=== PATIENT | female | born 1930 | race Caucasian/White ===

== ENCOUNTER 2016-06-25 08:17 | Inpatient (IN) | payer MEDICARE, OTHER ==
[~2016-06-25] VITALS: Ht 154.9 cm; Wt 55.3 kg
[2016-06-25] MEDS ORDERED: CEFAZOLIN 1 GM IVPB PREMIX 50 ML IV ONE (09:00)
[2016-06-25] MEDS ORDERED: LR 1,000 ML IV SCH (12:28)
[2016-06-25] MEDS ORDERED: MORPHINE 2 MG/ML INJ. SYRINGE IVP PRN ×3 (12:30)
[2016-06-25] MEDS: D5/0.45 NS 1,000 ML IV SCH ×2 (12:52→22:18)
[2016-06-25] MEDS ORDERED: ACETAMINOPHEN 325 MG TABLET PO PRN (13:00)
[2016-06-25] MEDS ORDERED: HYDROcodone/ACETAMIN 5-325 MG TAB (NORCO/ VICODIN) PO PRN (13:00)
[2016-06-25] MEDS ORDERED: HYDROmorphone 1 MG INJ. 1 MG/ML AMPUL IVP PRN (13:00)
--- NOTE | 2016-06-25 13:50 | NUR ---
ADMIT NOTE RECEIVED PATIENT FROM PACU, PT STABLE, AWAKE ALERT AND ORIENTED, VSS, NO S/S OF DISTRESS OR COMPLAINT OF PAIN AT THIS TIME, DRESSING NOTED TO RIGHT LEG, CDI, ELEVATED ON PILLOW, SCD TO LEFT FOOT INTACT, IV TO LFA 20 GG INTACT AD INFUSING LR AT ORDERED RATE, NO S/S OF INFILTRATION NOTED. PT ORIENTED TO ROOM AND USE OF CALL LIGHT , SAFETY MEASURES IN PLACE, DAUGHTERS AT BEDSIDE, WILL CONTINUE TO MONITOR
[2016-06-25 14:17] VITALS: BP 157/75; PULSE 72; RESP 16; TEMP 96.1; O2SAT 96
[2016-06-25] MEDS ORDERED: HYDR25TA4 PO (14:49)
[2016-06-25] MEDS ORDERED: APIX2.5T PO (14:49)
[2016-06-25] MEDS ORDERED: DILT240C2 PO (14:49)
[2016-06-25] MEDS ORDERED: IPRA0.2S6 INH (14:49)
[2016-06-25] MEDS ORDERED: ALBU8.5H8 INH (14:49)
--- NOTE | 2016-06-25 15:10 | NUR ---
DR GRIFFIN OFFICE WAS CALLED SPOKE WITH JAS Addendum: 06/25/16 at 1755 by Miryam Ty RN MD RODRIGUEZ MADE AWARE THAT PT IS UNDER HIS CARE DURING OBSERVATION.
--- NOTE | 2016-06-25 15:50 | NUR ---
PT ASSISTED TO BEDPAN Addendum: 06/25/16 at 1754 by Miryam Ty RN VOIDED OUT 850ML, CLEAR YELLOW URINE, PT CLEANSED AND REPOSITIONED WITH PILLOW SUPPORT TO RIGHT LOWER EXTREMITY. PT DENIES PAIN AT THIS TIME, NO S/S OF DISTRESS, VSS, DAUGHTERS AT BEDSIDE, CALL LIGHT WITHIN REACH, WILL CONTINUE TO MONITOR.
[2016-06-25 16:00] VITALS: BP 140/77; PULSE 65; RESP 17; TEMP 97.2; O2SAT 98
[2016-06-25] MEDS: CEFAZOLIN 1 GM IVPB PREMIX 50 ML IV SCH ×2 (16:23→22:17)
[2016-06-25] MEDS: HYDROcodone/ACETAMIN 5-325 MG TAB (NORCO/ VICODIN) PO PRN ×2 (16:23→20:26)
[2016-06-25 17:19] VITALS: BP 157/75; PULSE 72; RESP 16; TEMP 96.1; O2SAT 96
--- NOTE | 2016-06-25 17:55 | NUR ---
PT EDUCATED REGARDING USE OF INCENTIVE SPIROMETER TO EXERCISE LUNGS AND AVOID POSTOPERATIVE ISSUES. PT VERBALIZED UNDERSTANDING, ABLE TO DEMONSTRATE USE OF INCENTIVE SPIROMETER, CAN GO UP TO 750, PT ENCOURAGED TO USE EVERY 20 MINUTES POST OP DAY, WILL CONTINUE TO MONITOR
--- NOTE | 2016-06-25 19:01 | NUR ---
CLOSING NOTE PT ASSISTED TO BEDSIDE COMMODE, NO S/S OF DISTRESS OR COMPLAINT OF PAIN, PT TOLERATED WELL, VSS, IV TO LFA PATENT AND INTACT, INFUSING ORDER FLUID AT PRESCRIBED RATE. DRESSING TO RIGHT LEG AND RIGHT THIGH CLEAN DRY AND INTACT, NO S/S OF ACTIVE BLEEDING. ALL NEEDS ATTENDED TO THROUGHOUT SHIFT, SAFETY MEASURES IN PLACE, CALL LIGHT WITHIN REACH, WILL ENDORSE CARE TO FOLLOWING SHIFT.
[2016-06-25 20:00] VITALS: BP 149/91; PULSE 64; RESP 18; TEMP 97.2; O2SAT 97
--- NOTE | 2016-06-25 20:00 | NUR ---
Initial Notes Received patient resting in bed, finishing dinner, family at bedside. Patient is awake, alert, oriented. Vital signs stable. Patient denies any acute distress or pain at this time. Breathing is even and unlabored on room air. IV site patent/clean/dry. Patient s/p skin graft right lower extremity, surgical dressing intact, small drainage noted. Educated patient on use of call light for assistance and fall precautions, patient verbalized understanding. Call light in hand, will continue to monitor.
[2016-06-25] MEDS: FAMOTIDINE PF 20 MG/2 ML VIAL IVP SCH (20:25)
--- NOTE | 2016-06-25 20:45 | NUR ---
MD Communication S/W Dr. Dimas, covering, requesting for orders for breathing treatment. Orders received.
[2016-06-25] MEDS: IPRATROPIUM/ALBUTEROL SULFATE 3 ML AMPUL.NEB INH PRN (21:14)
--- NOTE | 2016-06-25 22:00 | NUR ---
Rounds Patient resting in bed, awake. Denies any acute distress or pain at this time. Breathing is even and unlabored. IV site patent/clean/dry. Educated patient on use of incentive spirometer, patient able to return demonstration, 750ml. Needs address. Call light in hand, fall precautions in place. Will continue to monitor for changes and safety.
[2016-06-25 22:07] VITALS: BP 149/91
[2016-06-26] VITALS: BP 134/57; PULSE 61; RESP 16; TEMP 97.8; O2SAT 96
--- NOTE | 2016-06-26 | NUR ---
Rounds Patient resting in bed with eyes closed. No acute distress noted, breathing even and unlabored. IV site patent/clean/dry. Call light in hand, will continue to monitor.
[2016-06-26] MEDS: IPRATROPIUM/ALBUTEROL SULFATE 3 ML AMPUL.NEB INH PRN ×3 (01:30→20:30)
[2016-06-26] MEDS: HYDROcodone/ACETAMIN 5-325 MG TAB (NORCO/ VICODIN) PO PRN (01:35)
--- NOTE | 2016-06-26 02:12 | NUR ---
Rounds Patient awake in bed. Patient denies any acute distress. Medicated patient for pain per MD orders. Patient recently received breathing treatment. IV site patent/clean/dry. Surgical dressing intact. Assisted patient to bedside commode. Needs addressed. Call light in hand, will continue to monitor.
[2016-06-26 04:00] VITALS: BP 134/70; PULSE 60; RESP 22; TEMP 97; O2SAT 22
--- NOTE | 2016-06-26 04:00 | NUR ---
Rounds Patient resting in bed, awake. Patient denies any acute distress or pain at this time. Breathing is even and unlabored. IV site patent/clean/dry. Drainage noted on dressing, mostly serous, dressing note removed per MD order. Needs addressed. Call light in hand, fall precautions in place. Will continue to monitor.
[2016-06-26] MEDS: ONDANSETRON HCL 4 MG/2 ML VIAL IVP PRN ×2 (05:39→10:53)
--- NOTE | 2016-06-26 05:45 | NUR ---
N/V Patient reported feeling nauseous, vomited small amount of last night's dinner. Medicated patient per MD order. Will continue to monitor.
--- NOTE | 2016-06-26 06:31 | NUR ---
Closing Notes Patient resting in bed with eyes closed, easily aroused. Patient denies any acute distress or pain at this time. Breathing is even and unlabored. IV site patent/clean/dry, no S/S infection/infiltration noted. Dressing in place and intact, not removed per MD order. Patient noted nausea has subsided. Needs addressed throughout shift. Call light in hand, fall precautions in place. Will continue to monitor for changes and safety, and endorse all patient care/needs to oncoming nurse.
[2016-06-26 08:00] VITALS: BP 132/68; PULSE 60; RESP 16; TEMP 96.8; O2SAT 96
--- NOTE | 2016-06-26 08:00 | NUR ---
INITIAL NOTE PT RESTING, EASY TO AROUSE, ALERT AND ORIENTED X4, NO S/S OF DISTRESS OR COMPLAINT OF PAIN AT THIS TIME, VSS, IV FLUIDS INFUSING AT ORDERED RATE, NO S/S OF INFILTRATION NOTED, DRESSING TO RIGHT LEG CLEAN DRY AND INTACT, DRESSING TO RIGHT THIGH NOTED DRAINAGE, WILL MAKE MD AWARE, ORDERS ARE TO NOT REMOVE DRESSING, SCD TO LEFT LEG IN PLACE, PLAN OF CARE DISCUSSED WITH PT, PT VERBALIZED UNDERSTANDING, PT REORIENTED TO USE OF CALL LIGHT AND IT IS PLACED WITHIN REACH, SAFETY MEASURES IN PLACE, BED IN LOW POSITION AND LOCKED, WILL FOLLOW UP
[2016-06-26] MEDS: FAMOTIDINE PF 20 MG/2 ML VIAL IVP SCH ×2 (08:42→20:15)
[2016-06-26] MEDS: D5/0.45 NS 1,000 ML IV SCH ×2 (08:43→20:16)
--- NOTE | 2016-06-26 09:20 | NUR ---
DR MANZO AT BEDSIDE, RECEIVED ORDERS TO CHANGE DRESSING TO RIGHT THIGH, LEAVE XEROFORM IN PLACE, CHANGE GAUZE AND REINFORCE WITH TAPE. ORDERS NOTED AND CARRIED OUT.
--- NOTE | 2016-06-26 09:30 | NUR ---
Nutrition Update John Scale 18 noted. Pt admitted for malignant primary neoplasm, unspecified. Diet: regular BMI: 23.1 kg/m2 RD to follow per nutrition care standards.
--- NOTE | 2016-06-26 09:45 | NUR ---
DRESSING CHANGED TO RIGHT THIGH, SEROSANGUINEOUS DRAINAGE NOTED, XEROFORM LEFT IN PLACE, DRESSING SECURED WITH GAUZE AND TAPE, WILL CONTINUE TO MONITOR
--- NOTE | 2016-06-26 10:25 | NUR ---
DR SMITH MAKING ROUNDS, ASSESSED PATIENT, PT AGREES TO STAY ANOTHER NIGHT AND START PHYSICAL THERAPY. PLAN OF CARE DISCUSSED AND PT VERBALIZED UNDERSTANDING. WILL FOLLOW UP
[2016-06-26] MEDS ORDERED: APIXABAN 2.5 MG TABLET PO ONE (11:30)
[2016-06-26 12:27] VITALS: BP 145/70; PULSE 60; RESP 18; TEMP 97.7; O2SAT 95
--- NOTE | 2016-06-26 13:45 | NUR ---
DR LUIS RODRIGUEZ FOR CHANGE IN PAIN MEDICAITON DUE TO PATIENT BEING NAUSOUS AND VOMITING. ORDER REICEVED TO DC NORCO AND CHANGE TO TYLENO; Addendum: 06/26/16 at 1852 by Miryam Ty RN RECEIVED TO DC NORCO AND CHANGE PAIN MEDICATION TO TYLENOL WITH CODEINE AND TO CHANGE TYLENOL ORDER TO MILD PAIN AND TEMP. ORDER NOTED AND CARRIED OUT WILL FOLLOW UP
[2016-06-26] MEDS: ACETAMINOPHEN/CODEINE 300 MG-30 MG TABLET PO PRN ×2 (14:57→20:53)
[2016-06-26 16:11] VITALS: BP 155/77; PULSE 60; RESP 17; TEMP 97.6; O2SAT 97
--- NOTE | 2016-06-26 16:30 | NUR ---
ROUNDS PT ASSISTED TO RESTROOM AND PLACED IN BEDSIDE CHAIR PER PATIENT REQUEST, PT ABLE TO TOLERATE WILL, NO S/S OF DISTRESS, DAUGHTER AT BEDSIDE, CALL LIGHT WITHIN REACH, WILL FOLLOW UP
--- NOTE | 2016-06-26 18:52 | NUR ---
CLOSING NOTE PT RESTING, EASY TO AROUSE, NO S/S OF DISTRESS, COMPLAINT OF PAIN OR NAUSEA OR VOMITING, VSS, IV FLUIDS INFUSING AT ORDERED RATE, NO S/S OF INFILTRATION NOTED, DRESSINGS TO RIGHT THIGH AND LEG CLEAN DRY AND INTACT, ALL NEEDS ATTENDED TO THROUGH OUT SHIFT, SAFETY MEASURES MAINTAINED, CALL LIGHT WITHIN REACH, WILL GIVE REPORT TO FOLLOWING SHIFT.
[2016-06-26 19:35] VITALS: BP 148/71; PULSE 60; RESP 18; TEMP 98.8; O2SAT 99
--- NOTE | 2016-06-26 19:35 | NUR ---
Initial Notes Pt is alert, oriented X4. Pt is pleasant and cooperative. No acute distress or sob noted. Pt has two dressings to right lower and upper thigh. Dressing to upper right thigh and lower leg is cdi. Plan of care discussed with pt and daughter at bedside, all verbalized understanding. Will reinforce teaching as needed. IV intact and infusing well with IV fluids ordered. VSS. I/S at bedside with total of 1000cc of inspired effort noted. Pt encouraged to use I/S while awake. Safety precautions in place, side rails up x3 with bed in lowest, locked position, bed alarm on at all times. Pt educated forensic economist light and correct back demonstration noted. Call light in reach. Will continue to monitor.
[2016-06-26] MEDS: APIXABAN 2.5 MG TABLET PO SCH (20:52)
--- NOTE | 2016-06-26 23:40 | NUR ---
Rounds Pt is sleeping comfortably at this time. No acute distress or sob noted. Safety measures in place. Call light in reach. Will continue to monitor.
[2016-06-27 01:56] VITALS: BP 156/77; PULSE 60; RESP 17; TEMP 97.2; O2SAT 93
--- NOTE | 2016-06-27 02:15 | NUR ---
Rounds Pt is sleeping comfortably in bed at this time. No acute distress or sob noted. Safety measures in place. Call light in reach. Will continue to monitor.
[2016-06-27 03:46] VITALS: BP 135/68; PULSE 61; RESP 18; TEMP 97.2; O2SAT 95
--- NOTE | 2016-06-27 04:00 | NUR ---
PATIENT RESTING: Patient resting quietly. No acute distress noted. Vital signs within normal range. Call light within reach. Will continue to monitor.
[2016-06-27] MEDS ORDERED: VALS320T13 PO (04:43)
--- NOTE | 2016-06-27 06:44 | NUR ---
Closing Notes Assisted pt to restroom at this time. Pt noted to void without difficulty. Assisted pt back into bed safely. Dressing to right lower leg is clean, dry and intact, no bleeding noted. SCD to left leg in place. New IV bag placed. Pt denies any pain at this time. VSS. IV intact. All needs met throughout shift. Will endorse care to am nurse. Call light within reach. Will continue to monitor.
[2016-06-27] MEDS: IPRATROPIUM/ALBUTEROL SULFATE 3 ML AMPUL.NEB INH PRN (06:54)
[2016-06-27] MEDS: ACETAMINOPHEN/CODEINE 300 MG-30 MG TABLET PO PRN (07:52)
[2016-06-27 08:00] VITALS: BP 169/80; PULSE 71; RESP 17; TEMP 97.5; O2SAT 97
[2016-06-27] MEDS: APIXABAN 2.5 MG TABLET PO SCH (08:31)
[2016-06-27] MEDS: FAMOTIDINE PF 20 MG/2 ML VIAL IVP SCH (08:32)
--- NOTE | 2016-06-27 08:34 | NUR ---
eliquis pt refused eliquis. per pt the doctor told her not to take eliquis till saturday because of surgery.
[2016-06-27] MEDS ORDERED: DILTIAZEM HCL 240 MG CAP.SR.24H PO SCH (09:00)
[2016-06-27] MEDS ORDERED: HYDROCHLOROTHIAZIDE 25 MG TABLET (HCTZ) PO SCH (09:00)
--- NOTE | 2016-06-27 10:05 | NUR ---
Faxed DC order Home to [facility] at [phone] Filed fax confirmation in binder.
[2016-06-27] MEDS ORDERED: CEFAZOLIN 1 GM IVPB PREMIX 50 ML IV ONE (10:25)
[2016-06-27 12:10] VITALS: BP 155/81; PULSE 61; RESP 16; TEMP 97.2; O2SAT 96
[2016-06-27] MEDS ORDERED: MIDAZOLAM HCL 5 MG/5 ML VIAL IVP ONE (12:14)
[2016-06-27] MEDS ORDERED: LR 1,000 ML IV.SOLN IV ONE (12:14)
[2016-06-27] MEDS ORDERED: NS 1000 ML BAG IV ONE (12:14)
[2016-06-27] MEDS ORDERED: ePHEDrine sulfate 50 MG/ML VIAL IV ONE (12:14)
[2016-06-27] MEDS ORDERED: LIGHT MINERAL OIL 10 ML VIAL MC ONE (12:14)
--- NOTE | 2016-06-27 12:15 | NUR ---
discharge d/c pt home. pt tolerable at this time. per pt she has pain medication at home that was prescribe by her doctor. dressing dry and intact on the rt. leg. circulation intact. d/c instruction discussed to pt. and family. ambulate with assistance. ivl and arm band removed. discharged
--- NOTE | 2016-06-27 15:31 | NUR ---
PHYSICAL THERAPY CO-SIGN The Physical Therapy Progress Notes documented by Relay Checker have been reviewed. I CONCUR W/VALET PARKING ATTENDANT NOTE; CONT PER TX PLAN Reviewed/Co-Signed by: Adilia Wright PT Documentation Done by: KARISSA SWANSON VALET PARKING ATTENDANT Addendum: 06/27/16 at 1532 by Adilia Wright PT Amended: Links added.
--- NOTE | 2016-06-28 14:12 | NUR ---
Discharge Follow Up Phone Call VETERINARY SURGERY TECHNOLOGIST phoned patient, . Patient stated she had been to her follow up appointment with Dr Pedraza this morning and her leg looks okay. She was told to keep her foot elevated. She lives alone but has help from her daughter and friend and they are managing okay. She stated she did not receive any new prescriptions. Patient has no questions or concerns. No further follow up needed.
== END 2016-06-27 12:15 | disposition home or self-care (01) | DRG 577 ==
LOC: SDS 08:17 → SMU 08:17 → SDS 06-26 11:43 → SMU 06-26 11:43
PROVIDERS: ADMIT Colon & Rectal Surgery; ATTEND Colon & Rectal Surgery
PROC: 0JBN0ZZ Excision of Right Lower Leg Subcutaneous Tissue and Fascia, Open Approach (ICD-10-PCS; 2016-06-25)
PROC: 0HRKX74 Replacement of Right Lower Leg Skin with Autologous Tissue Substitute, Partial Thickness, External Approach (ICD-10-PCS; principal; 2016-06-25 12:00)
DX: C44.722 Squamous cell carcinoma of skin of right lower limb, including hip (principal); I42.9 Cardiomyopathy, unspecified; I11.0 Hypertensive heart disease with heart failure; I48.0 Paroxysmal atrial fibrillation; I50.9 Heart failure, unspecified; Z79.01 Long term (current) use of anticoagulants; Z79.899 Other long term (current) drug therapy
CPT/HCPCS: 87081; 88305; 88307; 94010; 94640; 94760; 97110-GP; 97116-GP; 97530-GP; J0690; J2250; J2405; J3490; J7030; J7120

== ENCOUNTER 2017-11-25 06:55 | Day surgery (SDC) | payer MEDICARE, OTHER ==
[~2017-11-25] VITALS: Ht 154.9 cm; Wt 50.8 kg
[~2017-11-25 06:55] MED LIST: ALBU8.5H8 INH; APIX2.5T PO; DILT240C2 PO; HYDR25TA4 PO; IPRA0.2S6 INH; VALS320T15 PO
[2017-11-25] MEDS ORDERED: ALBUTEROL SULFATE 0.083% 2.5 MG/3 ML VIAL.NEB INH ONE ×2 (08:00→08:59)
[2017-11-25] MEDS ORDERED: LOSA50TA3 PO (08:16)
[2017-11-25] MEDS ORDERED: CEFAZOLIN 1 GM IVPB PREMIX 50 ML IV ONE (09:00)
[2017-11-25] MEDS ORDERED: PROPOFOL 200MG/ 20ML VIAL (DIPRIVAN) IV ONE (09:45)
[2017-11-25] MEDS ORDERED: PHENYLEPHRINE HCL 10 MG/ML VIAL (NEOSYNEPHRINE) IV ONE (09:45)
[2017-11-25] MEDS ORDERED: GLYCOPYRROLATE 0.2 MG/ML VIAL IJ ONE (09:45)
[2017-11-25] MEDS ORDERED: BUPIVACAINE /PF 0.25% 30 ML VIAL INJ ONE (09:45)
[2017-11-25] MEDS ORDERED: MIDAZOLAM HCL 5 MG/5 ML VIAL IVP ONE (09:45)
[2017-11-25] MEDS ORDERED: NS 1000 ML IV.SOLN IV ONE (09:45)
[2017-11-25] MEDS ORDERED: LR 1,000 ML IV.SOLN IV ONE (09:45)
[2017-11-25] MEDS ORDERED: OXYTOCIN 10 UNIT/ML VIAL IV ONE (09:45)
[2017-11-25] MEDS ORDERED: ISOSULFAN BLUE 5 ML VIAL (LYMPHAZURIN) INJ ONE (09:45)
[2017-11-25] MEDS ORDERED: SEVOFLURANE 15 MIN GAS INH ONE (09:45)
[2017-11-25] MEDS ORDERED: ROCURONIUM BROMIDE 10 MG/ML (ZEMURON) IV ONE (09:45)
[2017-11-25] MEDS ORDERED: fentaNYL CITRATE 250 MCG/5 ML AMP IV ONE (09:45)
[2017-11-25] MEDS ORDERED: ONDANSETRON HCL 4 MG/2 ML VIAL IVP ONE (09:45)
[2017-11-25] MEDS ORDERED: LR 1,000 ML IV SCH (10:47)
[2017-11-25] MEDS ORDERED: ACETAMINOPHEN 325 MG TABLET PO PRN (11:00)
[2017-11-25] MEDS ORDERED: HYDROmorphone 1 MG INJ. 1 MG/ML AMPUL IVP PRN (11:00)
[2017-11-25] MEDS ORDERED: HYDROcodone/ACETAMIN 5-325 MG TAB (NORCO/ VICODIN) PO PRN ×2 (11:00)
[2017-11-25] MEDS ORDERED: METOCLOPRAMIDE HCL 10 MG/2 ML VIAL IVP PRN (11:00)
[2017-11-25] MEDS ORDERED: MORPHINE 4 MG/ML INJ. SYRINGE IVP PRN ×3 (11:00)
[2017-11-25] MEDS ORDERED: MORPHINE 4 MG/ML INJ. SYRINGE ONE (11:29)
[2017-11-25 12:05] VITALS: BP_SYST 145
[2017-11-25 12:33] VITALS: BP_SYST 145
[2017-11-25] MEDS: CEFAZOLIN 1 GM IVPB PREMIX 50 ML IV SCH ×2 (13:22→21:56)
[2017-11-25 15:23] VITALS: BP_SYST 117
[2017-11-25] MEDS ORDERED: IPRATROPIUM BROM 0.5 MG/2.5 ML VIAL.NEB (ATROVENT) INH PRN (16:45)
[2017-11-25] MEDS: ONDANSETRON HCL 4 MG/2 ML VIAL IVP PRN ×2 (17:00→22:21)
[2017-11-25 19:55] VITALS: BP_SYST 113
[2017-11-25] MEDS: D5/0.45 NS 1,000 ML IV SCH ×2 (20:53→21:58)
[2017-11-25] MEDS: LOSARTAN POTASSIUM 50 MG TABLET (COZAAR) PO SCH (21:56)
[2017-11-25] MEDS: FAMOTIDINE PF 20 MG/2 ML VIAL IVP SCH (21:57)
[2017-11-25] MEDS: ALBUTEROL SULFATE 0.083% 2.5 MG/3 ML VIAL.NEB INH PRN (22:37)
[2017-11-26 00:44] VITALS: BP_SYST 106
[2017-11-26] MEDS: ALBUTEROL SULFATE 0.083% 2.5 MG/3 ML VIAL.NEB INH PRN (06:45)
[2017-11-26 08:20] VITALS: BP_SYST 115
[2017-11-26] MEDS: LOSARTAN POTASSIUM 50 MG TABLET (COZAAR) PO SCH (08:32)
[2017-11-26] MEDS: FAMOTIDINE PF 20 MG/2 ML VIAL IVP SCH (08:32)
[2017-11-26] MEDS: D5/0.45 NS 1,000 ML IV SCH (08:34)
[2017-11-26] MEDS ORDERED: APIXABAN 2.5 MG TABLET PO SCH (09:00)
[2017-11-26] MEDS ORDERED: DILTIAZEM HCL 240 MG CAP.SR.24H PO SCH (09:00)
[2017-11-26] MEDS: ONDANSETRON HCL 4 MG/2 ML VIAL IVP PRN (10:10)
[2017-11-26 10:23] VITALS: BP_SYST 115
== END 2017-11-26 10:55 | disposition home or self-care (01) ==
LOC: SDS 06:55 → SMU 06:55 → SDS 07:38 → SMU 07:38 → SDS 11-26 10:55
PROVIDERS: ATTEND Colon & Rectal Surgery
DX: C50.912 Malignant neoplasm of unspecified site of left female breast (principal); I89.9 Noninfective disorder of lymphatic vessels and lymph nodes, unspecified; N60.42 Mammary duct ectasia of left breast; H26.9 Unspecified cataract; J44.9 Chronic obstructive pulmonary disease, unspecified; J45.909 Unspecified asthma, uncomplicated; I13.0 Hypertensive heart and chronic kidney disease with heart failure and stage 1 through stage 4 chronic kidney disease, or unspecified chronic kidney disease; N18.3 Chronic kidney disease, stage 3 (moderate); I50.30 Unspecified diastolic (congestive) heart failure; H91.90 Unspecified hearing loss, unspecified ear; M81.0 Age-related osteoporosis without current pathological fracture; I48.0 Paroxysmal atrial fibrillation; M15.9 Polyosteoarthritis, unspecified; L40.9 Psoriasis, unspecified; D69.2 Other nonthrombocytopenic purpura; H35.30 Unspecified macular degeneration; G89.29 Other chronic pain; G62.9 Polyneuropathy, unspecified; K21.9 Gastro-esophageal reflux disease without esophagitis; Z79.899 Other long term (current) drug therapy; Z95.0 Presence of cardiac pacemaker; Z90.89 Acquired absence of other organs; Z96.649 Presence of unspecified artificial hip joint; Z90.710 Acquired absence of both cervix and uterus; Z98.890 Other specified postprocedural states; Z82.49 Family history of ischemic heart disease and other diseases of the circulatory system; Z80.1 Family history of malignant neoplasm of trachea, bronchus and lung; Z87.891 Personal history of nicotine dependence; Z88.8 Allergy status to other drugs, medicaments and biological substances
CPT/HCPCS: 19303; 38525; 38900; 78195; 87081; 88307; 88333; 88342; 94640 ×2; A9541; J0690; J2250; J2270; J2370; J2405 ×2; J2590; J2704; J3010; J3490 ×4; J7030; J7120; J7613 ×2; Q9968

== ENCOUNTER 2018-01-05 23:28 | Emergency (ER) | payer MEDICARE, OTHER ==
[~2018-01-05] VITALS: Ht 154.9 cm; Wt 49.9 kg
[~2018-01-05 23:28] MED LIST changes: -HYDR25TA4 PO; +LOSA50TA3 PO; -VALS320T15 PO
[2018-01-05 23:35] VITALS: BP_SYST 164
[2018-01-06 01:31] LABS: EOSINOPHILS # (AUTO) 0.4 K/uL (0.0-0.4); EOSINOPHILS % (AUTO) 7.4 % (0.0-4.0); HEMATOCRIT 32.8 % (36-48); HEMOGLOBIN 10.6 g/dL (12.0-16.0); LYMPHOCYTES # (AUTO) 1.2 K/uL (1.0-5.5); LYMPHOCYTES % (AUTO) 24.8 % (20.5-51.5); MEAN CORPUSCULAR HEMOGLOBIN 31 pg (27-31); MEAN CORPUSCULAR HGB CONC 32 % (32-36); MEAN CORPUSCULAR VOLUME 95 fL (79.0-98.0); MONOCYTES # (AUTO) 0.7 K/uL (0.0-1.0); MONOCYTES % (AUTO) 13.6 % (1.7-9.3); NEUTROPHILS # (AUTO) 2.6 K/uL (1.8-7.7); NEUTROPHILS % (AUTO) 53.2 % (40.0-70.0); PLATELET COUNT (AUTO) 178 K/uL (130-430); RED BLOOD CELL COUNT(AUTO) 3.44 MIL/uL (4.2-6.2); RED CELL DISTRIBUTION WIDTH 12.5 % (9.0-15.0); WHITE BLOOD COUNT (AUTO) 4.9 K/uL (4.8-10.8)
[2018-01-06 01:53] LABS: ANION GAP 11 (5-15); CALCIUM 8.9 mg/dL (8.4-11.0); CHLORIDE 98 mmol/L (98-107); CREATININE 0.64 mg/dL (0.55-1.30); GLUCOSE 95 mg/dL (70-99); POTASSIUM 3.6 mmol/L (3.5-5.1); SODIUM SERUM 133 mmol/L (136-145); UREA NITROGEN, BLOOD 17 mg/dL (8-21)
[2018-01-06 01:58] LABS: ALANINE AMINOTRANSFERASE 23 U/L (12-78); ALBUMIN 3.5 g/dL (3.4-4.8); ASPARTATE AMINOTRANSFERASE 24 U/L (10-37); TOTAL BILIRUBIN 0.6 mg/dL (0.0-1.0)
[2018-01-06 02:40] VITALS: BP_SYST 135
== END 2018-01-06 02:40 | disposition home or self-care (01) ==
LOC: SED 23:28
DX: L76.82 Other postprocedural complications of skin and subcutaneous tissue (principal); R58 Hemorrhage, not elsewhere classified; I48.91 Unspecified atrial fibrillation; J44.9 Chronic obstructive pulmonary disease, unspecified; I10 Essential (primary) hypertension; Z85.3 Personal history of malignant neoplasm of breast; Z88.8 Allergy status to other drugs, medicaments and biological substances; Z79.899 Other long term (current) drug therapy
CPT/HCPCS: 36415; 80053; 85025; 99284